=== PATIENT | female | born 1955 | race Caucasian/White ===

== ENCOUNTER → 2016-09-12 | Outpatient (CLI) | payer OTHER ==
--- NOTE | 2016-09-12 15:49 | CPEKG ---
Heart Rate: 119 RR Interval: 504 P-R Interval: 160 QRSD Interval: 88 QT Interval: 316 QTC Interval: 445 P [place]: 86 QRS [place]: 82 T Wave [place]: 65 EKG Severity - OTHERWISE NORMAL ECG - EKG Impression: SINUS TACHYCARDIA Electronically Signed By: Lane Lott 12-Sep-2016 16:24:39
== END ==
LOC: FCP 15:29
PROVIDERS: ATTEND Internal Medicine Critical Care Medicine
DX: R00.0 Tachycardia, unspecified (principal)